=== PATIENT | female | born 1995 | race Caucasian/White ===

== ENCOUNTER 2017-01-30 10:47 | Emergency (ER) | payer SELFPAY ==
[~2017-01-30] VITALS: Ht 170.2 cm; Wt 116.8 kg
[~2017-01-30 10:47] MED LIST: ALBUTEROL2.5 MG/31 IN; AMOXICILLIN500 MG OR; BACTRIM DS1 TAB PO; BENADRYL 50MG C50 MG PO; BENADRYL25 MG PO; CIPRO500 MG OR; CIPROFLOXACN500 MG PO; DITROPAN OR; KEFLEX500 MG OR; LORTAB 7.5 PO; LORTAB5 PO; MEDDOSEPAK PO; NAPROSYN500 MG OR; NEXIUM40 M1 PO; NO; PYRIDIUM200 MG PO; ZITHROMAX250 MG PO; ZOFRAN ODT4 MG OR
[2017-01-30 12:11] LABS: INFLUENZA A NONE DETECTED (NONE DETECT); INFLUENZA B NONE DETECTED (NONE DETECT)
[2017-01-30] MEDS ORDERED: BACTRIM DS1 TAB PO (12:16)
[2017-01-30] MEDS ORDERED: TESSALON PER100 MG PO (12:16)
[2017-01-30] MEDS ORDERED: MOTRIN800 MG PO (12:16)
[2017-01-30 12:35] VITALS: BP 129/78
== END 2017-01-30 12:35 | disposition home or self-care (01) | DRG 153 ==
LOC: ED 10:47
PROVIDERS: Emergency Medicine
DX: J01.90 Acute sinusitis, unspecified (principal); F17.210 Nicotine dependence, cigarettes, uncomplicated; R50.9 Fever, unspecified; R09.81 Nasal congestion; R05 Cough

== ENCOUNTER 2017-09-10 02:01 | Emergency (ER) | payer SELFPAY ==
[~2017-09-10] VITALS: Ht 170.2 cm; Wt 115.8 kg
[~2017-09-10 02:01] MED LIST changes: +MOTRIN800 MG PO; +TESSALON PER100 MG PO
[2017-09-10 02:57] LABS: HEMATOCRIT 39.2 % (37.0-47.0); HEMOGLOBIN 12.9 g/dl (12.0-16.0); IMMATURE GRANULOCYTES 0.4 % (0.0-1.0); MEAN CELL VOLUME 88.5 fL CALC (80.0-100.0); MEAN CORPUSCULAR HGB 29.1 pG CALC (26.0-32.0); MEAN CORPUSCULAR HGB CONC 32.9 g/L CALC (32.0-36.0); NEUT# 9.41 thou/uL (2.00-7.15); RED BLOOD COUNT 4.43 mill/uL (4.20-5.60); RED CELL DISTRI WIDTH 13.2 % (11.5-15.5)
[2017-09-10 03:08] LABS: ALBUMIN 3.9 g/dL (3.2-5.0); ALKALINE PHOSPHATASE 73 u/l (38-126); ANION GAP 15 (6-22 (CALC)); BILIRUBIN, TOTAL 0.3 mg/dL (0.0-1.4); BUN 11 mg/dL (7-17); BUN/CREATININE RATIO 19 (12-20 (CALC)); CALCIUM 9.1 mg/dL (8.4-10.2); CARBON DIOXIDE 22 mmol/l (22-30); CHLORIDE 112 mmol/l (95-108); CREATININE 0.6 mg/dL (0.5-1.0); GFR > 60 ML/MIN (>=60 (CALC)); GFR FOR AFR.AMER. > 60 ML/MIN (>=60 (CALC)); GLUCOSE 131 mg/dL (65-105); POTASSIUM 3.5 mmol/l (3.5-5.1); SGOT/AST 13 u/l (14-36); SGPT/ALT 26 u/l (9-52); SODIUM 145 mmol/l (137-146); TOTAL PROTEIN 6.7 g/dL (6.3-8.2)
[2017-09-10 03:25] LABS: BETA-HCG, QUANT(RESULT NUMBER) <2 mIU/mL
[2017-09-10 04:10] LABS: URINE BILIRUBIN - DIPSTICK NEGATIVE (NEGATIVE); URINE BLOOD DIPSTICK LARGE (NEGATIVE); URINE CLARITY CLEAR; URINE COLOR YELLOW; URINE GLUCOSE - DIPSTICK NEGATIVE (NEGATIVE); URINE KETONE NEGATIVE (NEGATIVE); URINE LEUK ESTERASE NEGATIVE (NEGATIVE); URINE NITRITE - DIPSTICK NEGATIVE (Negative); URINE PH 5.5 (4.5-8.0); URINE PROTEIN - DIPSTICK NEGATIVE (NEG-TRACE); URINE SPECIFIC GRAVITY >=1.030; URINE UROBILINOGEN - DIPSTICK 0.2 E.U./dL (0.2)
[2017-09-10 04:23] LABS: URINE MUCUS FEW hpf (NONE-FEW); URINE RBC 0-2 RBC/hpf (0-5); URINE WBC 0-2 WBC/hpf (0-5)
[2017-09-10 04:38] VITALS: BP 129/77
== END 2017-09-10 04:43 | disposition home or self-care (01) | DRG 761 ==
LOC: ED 02:01
PROVIDERS: Emergency Medicine
DX: N93.8 Other specified abnormal uterine and vaginal bleeding (principal); F17.210 Nicotine dependence, cigarettes, uncomplicated

== ENCOUNTER 2018-06-26 23:28 | Emergency (ER) | payer SELFPAY ==
[~2018-06-26] VITALS: Ht 170.2 cm; Wt 124.6 kg
[2018-06-27] MEDS ORDERED: WELLBUTRIN SR150 MG PO (00:17)
[2018-06-27 01:21] LABS: HEMATOCRIT 41.3 % (37.0-47.0); HEMOGLOBIN 13.5 g/dl (12.0-16.0); IMMATURE GRANULOCYTES 0.5 % (0.0-5.0); MEAN CELL VOLUME 89.2 fL CALC (80.0-100.0); MEAN CORPUSCULAR HGB 29.2 pG CALC (26.0-32.0); MEAN CORPUSCULAR HGB CONC 32.7 g/L CALC (32.0-36.0); NEUT# 9.68 thou/uL (2.00-7.15); RED BLOOD COUNT 4.63 mill/uL (4.20-5.60)
[2018-06-27 01:58] LABS: ALBUMIN 4.2 g/dL (3.2-5.0); ALKALINE PHOSPHATASE 100 u/l (38-126); ANION GAP 16 (6-22 (CALC)); BILIRUBIN, TOTAL 0.4 mg/dL (0.0-1.4); BUN 13 mg/dL (7-17); BUN/CREATININE RATIO 18 (12-20 (CALC)); CARBON DIOXIDE 27 mmol/l (22-30); CHLORIDE 106 mmol/l (95-108); CREATININE 0.7 mg/dL (0.5-1.0); GFR > 60 ML/MIN (>=60 (CALC)); GFR FOR AFR.AMER. > 60 ML/MIN (>=60 (CALC)); SGOT/AST 19 u/l (14-36); SGPT/ALT 31 u/l (9-52); SODIUM 144 mmol/l (137-146); TOTAL PROTEIN 7.6 g/dL (6.3-8.2)
[2018-06-27 02:07] LABS: POTASSIUM 4.5 mmol/l (3.5-5.1)
[2018-06-27 02:13] LABS: URINE BILIRUBIN - DIPSTICK NEGATIVE (NEGATIVE); URINE BLOOD DIPSTICK MODERATE (NEGATIVE); URINE COLOR YELLOW; URINE GLUCOSE - DIPSTICK NEGATIVE (NEGATIVE); URINE KETONE TRACE mg/dL (NEGATIVE); URINE PROTEIN - DIPSTICK 30 mg/dL (NEG-TRACE); URINE SPECIFIC GRAVITY 1.025; URINE UROBILINOGEN - DIPSTICK 0.2 E.U./dL (0.2)
[2018-06-27 02:14] LABS: URINE CLARITY SL CLOUDY; URINE LEUK ESTERASE LARGE (NEGATIVE); URINE NITRITE - DIPSTICK POSITIVE (Negative)
[2018-06-27 02:21] LABS: URINE BACTERIA MANY hpf; URINE SQUAMOUS EPITHELIAL CELL FEW EPI/hpf (0-FEW); URINE WBC TNTC WBC/hpf (0-5)
[2018-06-27] MEDS ORDERED: ULTRAM50 M1 PO (02:27)
[2018-06-27] MEDS ORDERED: CIPROFLOXACN500 MG PO (02:27)
[2018-06-27 03:15] VITALS: BP 132/80
== END 2018-06-27 03:15 | disposition home or self-care (01) | DRG 690 ==
LOC: ED 23:28
PROVIDERS: Emergency Medicine
DX: N39.0 Urinary tract infection, site not specified (principal); B96.20 Unspecified Escherichia coli [E. coli] as the cause of diseases classified elsewhere; F17.210 Nicotine dependence, cigarettes, uncomplicated

== ENCOUNTER 2018-12-22 12:02 | Emergency (ER) | payer SELFPAY ==
[~2018-12-22] VITALS: Ht 170.2 cm; Wt 118.2 kg
[~2018-12-22 12:02] MED LIST changes: +ULTRAM50 M1 PO; +WELLBUTRIN SR150 MG PO
[2018-12-22 14:10] VITALS: BP 148/85
== END 2018-12-22 14:10 | disposition home or self-care (01) | DRG 605 ==
LOC: ED 12:02
DX: S80.212A Abrasion, left knee, initial encounter (principal); F17.210 Nicotine dependence, cigarettes, uncomplicated; W01.0XXA Fall on same level from slipping, tripping and stumbling without subsequent striking against object, initial encounter; Y93.41 Activity, dancing; Y92.009 Unspecified place in unspecified non-institutional (private) residence as the place of occurrence of the external cause
CPT/HCPCS: L1830

== ENCOUNTER 2019-09-24 23:46 | Emergency (ER) | payer SELFPAY ==
[~2019-09-24] VITALS: Ht 170.2 cm; Wt 128.0 kg
[2019-09-25] MEDS ORDERED: BACTRIM DS1 TAB PO (00:46)
[2019-09-25 00:58] VITALS: BP 140/94
== END 2019-09-25 00:58 | disposition home or self-care (01) | DRG 603 ==
LOC: ED 23:46
DX: L03.313 Cellulitis of chest wall (principal)

== ENCOUNTER 2020-02-06 | Emergency (ER) | payer SELFPAY ==
[2020-02-06] MEDS ORDERED: AMOXICILLIN875 MG PO (13:25)
[2020-02-06] MEDS ORDERED: TAM75CAP PO (13:25)
--- NOTE | 2020-02-09 14:32 | NUR ---
Notified patient of Covid results (Negative). Advised patient to follow up with PCP or return to ED with urgeny needs. Advised patient to continue with Covid prevention practices.
== END 2020-02-06 13:35 | disposition home or self-care (01) | DRG 195 ==
DX: J10.1 Influenza due to other identified influenza virus with other respiratory manifestations (principal); Z20.828 Contact with and (suspected) exposure to other viral communicable diseases

== ENCOUNTER 2020-07-29 14:48 | Emergency (ER) | payer SELFPAY ==
[~2020-07-29] VITALS: Ht 170.2 cm; Wt 125.0 kg
[~2020-07-29 14:48] MED LIST changes: +AMOXICILLIN875 MG PO; +TAM75CAP PO
[2020-07-29 15:37] LABS: URINE BILIRUBIN - DIPSTICK NEGATIVE (NEGATIVE); URINE BLOOD DIPSTICK TRACE-LYSED (NEGATIVE); URINE COLOR YELLOW; URINE GLUCOSE - DIPSTICK NEGATIVE (NEGATIVE); URINE KETONE NEGATIVE (NEGATIVE); URINE PROTEIN - DIPSTICK NEGATIVE (NEG-TRACE); URINE SPECIFIC GRAVITY >=1.030; URINE UROBILINOGEN - DIPSTICK 0.2 E.U./dL (0.2)
[2020-07-29 15:58] LABS: URINE LEUK ESTERASE SMALL (NEGATIVE); URINE NITRITE - DIPSTICK POSITIVE (Negative)
[2020-07-29 15:59] LABS: ALBUMIN 4.3 g/dL (3.2-5.0); ALKALINE PHOSPHATASE 91 u/l (38-126); ANION GAP 14 (6-22 (CALC)); BILIRUBIN, TOTAL 0.4 mg/dL (0.0-1.4); BUN 11 mg/dL (7-17); BUN/CREATININE RATIO 20 (12-20 (CALC)); CARBON DIOXIDE 23 mmol/l (22-30); CHLORIDE 106 mmol/l (95-108); CREATININE 0.6 mg/dL (0.5-1.0); GFR > 60 ML/MIN (>=60 (CALC)); GFR FOR AFR.AMER. > 60 ML/MIN (>=60 (CALC)); POTASSIUM 4.4 mmol/l (3.5-5.1); SGOT/AST 26 u/l (14-36); SODIUM 139 mmol/l (137-146); TOTAL PROTEIN 7.5 g/dL (6.3-8.2); URINE SQUAMOUS EPITHELIAL CELL FEW EPI/hpf (0-FEW)
[2020-07-29 16:00] LABS: URINE BACTERIA MODERATE hpf
[2020-07-29 16:10] LABS: MYOGLOBIN 16 ng/mL (0 - 62)
[2020-07-29 16:18] LABS: HEMATOCRIT 44.6 % (37.0-47.0); HEMOGLOBIN 14.7 g/dl (12.0-16.0); MEAN CELL VOLUME 91.6 fL CALC (80.0-100.0); MEAN CORPUSCULAR HGB 30.2 pG CALC (26.0-32.0); PLATELET COUNT 242 thou/uL (130-400); RED BLOOD COUNT 4.87 mill/uL (4.20-5.60); RED CELL DISTRI WIDTH 12.4 % (11.5-15.5)
[2020-07-29 16:19] LABS: BASO% 0 % (0-3); EOS% 0 % (0-8); LYMPH% 22 % (15-41); MONO% 7 % (2-13); NEUT% 71 % (42-76)
[2020-07-29] MEDS ORDERED: KEFLEX500 M1 PO (16:33)
[2020-07-29 17:25] VITALS: BP 126/75
== END 2020-07-29 17:20 | disposition home or self-care (01) | DRG 313 ==
LOC: ED 14:48
PROVIDERS: Emergency Medicine
DX: R07.89 Other chest pain (principal); N39.0 Urinary tract infection, site not specified; B96.20 Unspecified Escherichia coli [E. coli] as the cause of diseases classified elsewhere; F17.200 Nicotine dependence, unspecified, uncomplicated

== ENCOUNTER 2020-09-30 09:42 | Emergency (ER) | payer SELFPAY ==
[~2020-09-30] VITALS: Ht 170.2 cm; Wt 121.4 kg
[~2020-09-30 09:42] MED LIST changes: +KEFLEX500 M1 PO
[2020-09-30] MEDS ORDERED: KEFLEX500 MG PO (10:11)
[2020-09-30 10:14] VITALS: BP 139/72
== END 2020-09-30 10:20 | disposition home or self-care (01) | DRG 159 ==
LOC: ED 09:42
DX: K04.7 Periapical abscess without sinus (principal); K02.9 Dental caries, unspecified; F17.200 Nicotine dependence, unspecified, uncomplicated

== ENCOUNTER 2020-12-15 07:40 | Emergency (ER) | payer SELFPAY ==
[~2020-12-15] VITALS: Ht 170.2 cm; Wt 127.3 kg
[~2020-12-15 07:40] MED LIST changes: +KEFLEX500 MG PO
[2020-12-15] MEDS ORDERED: AMOXICILLIN500 MG PO (08:19)
[2020-12-15] MEDS ORDERED: ULTRAM50 M1 PO (08:19)
[2020-12-15 08:50] VITALS: BP 134/83
== END 2020-12-15 08:50 | disposition home or self-care (01) | DRG 158 ==
LOC: ED 07:40
DX: K04.7 Periapical abscess without sinus (principal); M84.48XA Pathological fracture, other site, initial encounter for fracture; F17.210 Nicotine dependence, cigarettes, uncomplicated

== ENCOUNTER 2021-03-19 08:37 | Emergency (ER) | payer SELFPAY ==
[~2021-03-19] VITALS: Ht 170.2 cm; Wt 82.0 kg
[~2021-03-19 08:37] MED LIST changes: +AMOXICILLIN500 MG PO
[2021-03-19 10:09] VITALS: BP 134/72
[2021-03-19] MEDS ORDERED: LORTAB 1010 MG PO (10:30)
== END 2021-03-19 11:07 | disposition home or self-care (01) | DRG 563 ==
LOC: ED 08:37
DX: S92.351A Displaced fracture of fifth metatarsal bone, right foot, initial encounter for closed fracture (principal); F17.200 Nicotine dependence, unspecified, uncomplicated; W19.XXXA Unspecified fall, initial encounter

== ENCOUNTER 2022-05-30 13:28 | Emergency (ER) | payer SELFPAY ==
[~2022-05-30] VITALS: Ht 170.2 cm; Wt 121.8 kg
[~2022-05-30 13:28] MED LIST changes: +LORTAB 1010 MG PO
[2022-05-30 13:33] VITALS: BP 173/108
[2022-05-30 13:45] VITALS: BP 134/96
[2022-05-30] MEDS ORDERED: OFLOXACIN0.3 % OD (13:45)
[2022-05-30 13:53] VITALS: BP 134/96
== END 2022-05-30 13:59 | disposition home or self-care (01) | DRG 125 ==
LOC: ED 13:28
DX: H10.9 Unspecified conjunctivitis (principal); F17.200 Nicotine dependence, unspecified, uncomplicated

== ENCOUNTER 2024-10-19 01:29 | Emergency (ER) | payer BC ==
[2024-10-19] VITALS (9 sets, daily range): BP systolic 95–122; BP diastolic 51–75
[~2024-10-19] VITALS: Ht 170.2 cm; Wt 170.0 kg
[~2024-10-19 01:29] MED LIST changes: +MACROBID100 M1 PO; +OFLOXACIN0.3 % OD; +OMEPRAZOLE20 MG PO
[2024-10-19] MEDS ORDERED: Pantoprazole Sodium 40 MG VIAL (Protonix) IV ONE (02:10)
[2024-10-19 02:13] LABS: URINE BILIRUBIN - DIPSTICK Negative (NEGATIVE); URINE BLOOD DIPSTICK Negative (NEGATIVE); URINE COLOR Yellow; URINE GLUCOSE - DIPSTICK Negative (NEGATIVE); URINE KETONE Trace mg/dL (NEGATIVE); URINE LEUK ESTERASE Negative (NEGATIVE); URINE NITRITE - DIPSTICK Negative (Negative); URINE PROTEIN - DIPSTICK Trace mg/dL (NEG-TRACE); URINE SPECIFIC GRAVITY >=1.030
[2024-10-19 02:28] LABS: BASO% 0.4 % (0-3); EOS% 1.6 % (0-8); HEMOGLOBIN 11.9 g/dl (12.0-16.0); IMMATURE GRANULOCYTES 0.9 % (0.0-5.0); LYMPH% 34.6 % (15-41); MEAN CELL VOLUME 88.4 fL CALC (80.0-100.0); MEAN CORPUSCULAR HGB 27.7 pG CALC (26.0-32.0); MEAN CORPUSCULAR HGB CONC 31.3 g/dL CAL (32.0-36.0); NEUT# 4.56 thou/uL (2.00-7.15); NEUT% 55.5 % (42-76); RED BLOOD COUNT 4.3 mill/uL (4.20-5.60); RED CELL DISTRI WIDTH 13.6 % (11.5-15.5)
[2024-10-19 02:32] LABS: BILIRUBIN, TOTAL 0.4 mg/dL (0.02-1.3); CREATININE 0.6 mg/dL (0.5-1.0); POTASSIUM 3.8 mmol/l (3.5-5.1); TOTAL PROTEIN 7.2 g/dL (6.3-8.2)
[2024-10-19] MEDS ORDERED: ONDANSETRON HCl 4 MG/2 ML SDV IV ONE (03:35)
[2024-10-19] MEDS ORDERED: MORPHINE SULFATE 4 MG/ML VIAL IV ONE (03:35)
[2024-10-19] MEDS ORDERED: PROTONIX40 MG PO (04:13)
== END 2024-10-19 04:34 | disposition home or self-care (01) | DRG 392 ==
LOC: ED 01:29
PROVIDERS: Family Medicine
DX: K29.70 Gastritis, unspecified, without bleeding (principal); E11.9 Type 2 diabetes mellitus without complications
CPT/HCPCS: J2405; J2470

== ENCOUNTER 2024-12-25 21:21 | Emergency (ER) | payer SELFPAY ==
[~2024-12-25] VITALS: Ht 170.2 cm; Wt 155.0 kg
[~2024-12-25 21:21] MED LIST changes: +PROTONIX40 MG PO
[2024-12-25] MEDS ORDERED: KETOROLAC TROMETHAMINE 30 MG/ML SDV IM ONE (22:00)
[2024-12-25] MEDS ORDERED: AMOXICILLIN TRIHYDRATE 500 MG/CAP PO ONE (22:00)
[2024-12-25] MEDS ORDERED: AMOXICILLIN500 M2 PO (22:04)
[2024-12-25 22:37] VITALS: BP 137/86
== END 2024-12-25 22:37 | disposition home or self-care (01) | DRG 159 ==
LOC: ED 21:21
DX: K04.7 Periapical abscess without sinus (principal); E11.9 Type 2 diabetes mellitus without complications